=== PATIENT | male | born 1990 ===

== ENCOUNTER 2021-09-09 12:30 | Emergency (ER) | payer BC, SELFPAY ==
[2021-09-09 12:38] VITALS: BP 137/87; PULSE 93; RESP 18; O2SAT 95; BMI 26.0
--- NOTE | 2021-09-09 12:52 | ED.ALCOHOL ---
HPI - Alcohol General Time Seen by Provider: 12:52 Date Seen: 09/09/21 Chief Complaint: Unspecified Complaint, Adult Stated Complaint: Sleep deprivation Time Seen by Provider: 09/09/21 12:50 Source: patient and RN notes reviewed Related Data Home Medications Medication Instructions Recorded Confirmed No Known Home Medications 09/09/21 09/09/21 Allergies Allergy/AdvReac Type Severity Reaction Status Date / Time No Known Drug Allergies Allergy Verified 09/09/21 12:37 PFSH PFSH Social History Smoking Status: Never smoker How often do you have a drink containing alcohol: 2-4 times a month How often do you have six or more drinks on one occasion: Never AUDIT-C Alcohol total score: 2 Non-prescribed substance use: denies use Exam Const: Vital Signs, click to edit/add: Vital Signs - 24 hr 09/09/21 12:38 Pulse Rate [Right Pulse Oximeter] 93 Respiratory Rate 18 Blood Pressure [Ri ght Upper Arm] 137/87 Pulse Oximetry 95 Course Vital Signs Vital signs: Initial Vital Signs Temperature Source Temporal Artery Scan 09/09/21 12:38 Pulse Rate 93 09/09/21 12:38 Respiratory Rate 18 09/09/21 12:38 Blood Pressure 137/87 09/09/21 12:38 Blood Pressure Mean 103 09/09/21 12:38 Blood Pressure Position Sitting 09/09/21 12:38 Pulse Oximetry 95 09/09/21 12:38 Oxygen Delivery Method 09/09/21 12:38 Vital Signs Pulse Rate 93 09/09/21 12:38 Respiratory Rate 18 09/09/21 12:38 Blood Pressure 137/87 09/09/21 12:38 Pulse Oximetry 95 09/09/21 12:38 Pulse Rate 93 09/09/21 12:38 Respiratory Rate 18 09/09/21 12:38 Blood Pressure 137/87 09/09/21 12:38 Pulse Oximetry 95 09/09/21 12:38 Discharge Plan Discharge Prescriptions: No Action No Known Home Medications 0RF
--- NOTE | 2021-09-09 13:06 | ED_ITS ---
HPI - Anxiety General Time Seen by Provider: 12:52 Date Seen: 09/09/21 Chief Complaint: Unspecified Complaint, Adult Stated Complaint: Sleep deprivation Time Seen by Provider: 09/09/21 12:50 Source: patient and family ( is present) Mode of arrival: ambulatory Limitations: no limitations History of Present Illness HPI narrative: Patient is a very pleasant 30-year-old male coming in stating he just has not been able to sleep for about 48 hours. His is present. She states he has been working nights [employer] and then going to school. He recently just c ompleted school. He is exhausted and just has not been able to sleep. He does admit to his mind racing, states he tries to give himself reafformation to help but is just having difficulty sleeping. He endorses that he has been off his medications for about 2 years. He was on escitalopram and something else. There is family history of mood disorders, I cannot completely decipher if bipolar disorder or anxiety and depression are the mainstay in the family but nonetheless are mood disorders. He denies hallucinations or suicidality. He has an appointment tomorrow to get scheduled here in [place] to discuss this. He just felt like he could not wait. He has a history of alcohol abuse and did complete treatment in 2016. He only minimally drinks. His endorses that he really has not had any alcohol since June. Patient does not feel alcohol use is a problem for him right now and is not concerned about this, supports this viewpoint. He feels anxiety is more the problem rather than depression currently. As I was in there talking to him his therapist/counselor called. I did have him talk to the therapist. Patient has taken a total of 20 mg of melatonin for the last 48 hours, 2 tablets of a ZzzQuil type medicine which does have Benadryl. complaint: anxiety and other (insomnia) Onset (ago): day(s) Severity: severe Related Data Previous Rx's Medication Instructions Recorded lorazepam 1 mg tablet (Ativan) 1 mg PO ONCE PRN #1 tab 09/09/21 olanzapine 5 mg tablet (Zyprexa) 5 mg PO ONCE #2 tab 09/09/21 Allergies Allergy/AdvReac Type Severity Reaction Status Date / Time No Known Drug Allergies Allergy Verified 09/09/21 12:37 Review of Systems Status of ROS: Reports: 6 or more systems reviewed and unremarkable except as noted in History and below PFSH PFSH Social History Smoking Status: Never smoker How often do you have a drink containing alcohol: 2-4 times a month How often do you have six or more drinks on one occasion: Never AUDIT-C Alcohol total score: 2 Non-prescribed substance use: denies use Exam 2 Const: Vital Signs, click to edit/add: Vital Signs - 24 hr 09/09/21 12:38 Pulse Rate [Right Pulse Oximeter] 93 Respiratory Rate 18 Blood Pressure [Ri ght Upper Arm] 137/87 Pulse Oximetry 95 Documenting provider has reviewed patient's vital signs: yes Common normals: no apparent distress, average body habitus, oriented x3, healthy appearing and alert (But definitely seems tired) General appearance: cooperative, comfortable and well kempt HENMT: Common normals: normocephalic, head/scalp atraumatic and hearing grossly normal bilaterally Head and scalp: normocephalic and atraumatic Eye: Common normals: PERRL and EOMs intact bilaterally Pupil: PERRL Other: Some mild scleral injection bilaterally Neck & C-Spine: Common normals: no lymphadenopathy and thyroid normal Thyroid: thyroid normal Resp: Common normals: normal respiratory effort, no use of accessory muscles and clear to auscultation bilaterally Auscultation: clear to auscultation bilaterally Cardio: Common normals: regular rate, regular rhythm, S1 normal heart sound, S2 normal heart sound, no gallops, no clicks and no murmurs Rate: regular rate Rhythm: regular rhythm Heart sounds: S1 normal and S2 normal GI: Common normals: Normal to inspection, nondistended, normoactive bowel sounds present Neuro: Common normals: oriented x3 Sensorium/orientation: alert (But definitely seems tired) Psych: Common normals: mental status grossly normal, cooperative, denies hallucinations, denies homicidal ideation and denies suicidal ideation Appearance: well kempt Attitude: calm and engaged Activity/motor behavior: appropriate eye contact and psychomotor slowing (Is certainly very tired, seems appropriate for lack of sleep) Skin: Common normals: no rashes or lesions noted General skin exam: no rashes or lesions noted Course Course Hospital Course: Patient is going to try to look up records to see what he may have been on. We are going to attempt to call [facility] as he may have had prescriptions filled there before. I a.m. would like to see what he has been on in the past. My thought is to consider trazodone to help him try to sleep tonight until he follows up in clinic tomorrow. He did call in sick for work today. I reviewed with him that I thought he should probably at least have the next couple days off to try to reset. He does not seem to have any concerns on my part for suicidality or hallucinations. I certainly a.m. interested to see what medicines that he has been on before. Escitalopram is certainly something I would consider prescribed being but with him not sleeping I do wonder if this could be more bipolar presentation. We did review the need for safety with medications if this could be a bipolar type disorder. He and his do understand that. Reevaluation(s) Reevaluation #1: Patient is been unsuccessful getting through to any facility regarding prior medications. [facility] is going to take over an hour to get us any history on medicines. We have discussed a plan of trying to get him to sleep. We will try Zyprexa and Ativan. We discussed the Ativan and it is a 1 time dose. Time: 13:55 Vital Signs Vital signs: Initial Vital Signs Temperature Source Temporal Artery Scan 09/09/21 12:38 Pulse Rate 93 09/09/21 12:38 Respiratory Rate 18 09/09/21 12:38 Blood Pressure 137/87 09/09/21 12:38 Blood Pressure Mean 103 09/09/21 12:38 Blood Pressure Position Sitting 09/09/21 12:38 Pulse Oximetry 95 09/09/21 12:38 Oxygen Delivery Method 09/09/21 12:38 Vital Signs Pulse Rate 93 09/09/21 12:38 Respiratory Rate 18 09/09/21 12:38 Blood Pressure 137/87 09/09/21 12:38 Pulse Oximetry 95 09/09/21 12:38 Pulse Rate 93 09/09/21 12:38 Respiratory Rate 18 09/09/21 12:38 Blood Pressure 137/87 09/09/21 12:38 Pulse Oximetry 95 09/09/21 12:38 MDM - Anxiety MDM Narrative Medical decision making narrative: See hospital course Critical Care Time Critical Care Time Critical Care Time: No Discharge Plan Discharge Clinical Impression: Insomnia, Anxiety Patient Disposition: Home, Self-Care Condition: Stable Instructions: Insomnia (ED), Anxiety (ED) Additional Instructions: Need to keep clinic appointment as scheduled tomorrow. Note provided to be off work the next 2 days. Can try Zyprexa 5 mg when you get home. If you have not slept in 1-2 hours, can take a 2nd dose of the Zyprexa. If both of these doses of the Zyprexa do not work, take the 1 mg of Ativan. You do need to see if he can find out what medication do have been on prior. At any point you feel like you are experiencing hallucinations, have deterioratio of removed with any suicidal ideation, please return for re-evaluation. Activity Level: No Restrictions Discharge Diet: Regular Prescriptions: New olanzapine [Zyprexa] 5 mg tablet 5 mg PO ONCE Qty: 2 0RF Rx Instructions: May repeat dose in 1-2 hours if not sleeping. lorazepam [Ativan] 1 mg tablet 1 mg PO ONCE PRNQty: 1 0RF Follow Up/Referrals: Provider,Not a Local [Primary Care Provider] - Stand Alone Forms: [facility] ([facility]: [place]) Info Instructions
== END 2021-09-09 14:13 | disposition home or self-care (01) ==
PROVIDERS: Emergency Provider Family Medicine
DX: G47.00 Insomnia, unspecified (principal); F41.9 Anxiety disorder, unspecified
CPT/HCPCS: 99283; 99284

== ENCOUNTER 2021-10-24 17:41 | Emergency (ER) | payer BC, SELFPAY ==
[2021-10-24 18:02] VITALS: BP 161/82; PULSE 95; RESP 20; TEMP 36.1; O2SAT 98; BMI 24.8
--- NOTE | 2021-10-24 18:52 | ED_ITS ---
HPI - Anxiety General Time Seen by Provider: 18:52 <Malathi Gleason MD - Last Filed: 10/25/21 00:12> Date Seen: 10/24/21 <Malathi Gleason MD - Last Filed: 10/25/21 00:12> Chief Complaint: Anxiety <Malathi Gleason MD - Last Filed: 10/25/21 00:12> Stated Complaint: Anxiety <Malathi Gleason MD - Last Filed: 10/25/21 00:12> Time Seen by Provider: 10/24/21 18:51 <Malathi Gleason MD - Last Filed: 10/25/21 00:12> Source: patient, RN notes reviewed and old records reviewed <Malathi Gleason MD - Last Filed: 10/25/21 00:12> Mode of arrival: ambulatory <Malathi Gleason MD - Last Filed: 10/25/21 00:12> Limitations: no limitations <Malathi Gleason MD - Last Filed: 10/25/21 00:12> History of Present Illness HPI narrative: Patient is a 31-year-old male who I am told was hospitalized for 4 weeks at [facility] for psychosis and possible schizoaffective disorder. I do not have those records but per patient's he had a psychosis and presented to [facility] where he was hospitalized for 4 weeks. They started him on Zyprexa and he was discharged last October 16. Since he has been home he has been having and very hard time sleeping and recently outpatient physician prescribed him trazodone. It has not helped. He is unable to stay home alone because anxiety causes him significant distress. His is requesting that he be hospitalized again until he can start his outpatient treatment. She states that patient's stepmother is a drug abuse social worker and has contacted regions where she was told there was a bed available for him. Jadon in addition to not being able to sleep describes chest discomfort stating that it is on his right side but he grabs to his left anterior chest. States that he is also short of breath and has been experiencing a cough with mucus production. He has not had a fever. States over the past few days he has also had some loose stools. At this time he denies a racing heart but states he feels like his blood pressure is high. He has not had any nausea or vomiting. Patient denies any suicidal or homicidal ideation. Denies any auditory or visual hallucinations. His states he still has some delusional behavior but that when they talk he is able to see how it is not a delusion. They are agreeable to DEC evaluation. Patient is preferring that his answer most questions. However, he is able to answer questions appropriately but they are abbreviated. We were able to obtain obtain records from [facility]. On patient's problem list he does have anxiety, bipolar disorder with manic episode with severe psychotic features, schizoaffective disorder all listed in his problem list. Patient on leave from [employer]. Lives in [place] with his who is very loving and supportive. No drug alcohol or tobacco use. <Malathi Gleason MD - Last Filed: 10/25/21 00:12> Related Data Home Medications: Home Medications Medication Instructions Recorded Confirmed escitalopram oxalate 5 mg tablet 5 mg PO DAILY 10/24/21 10/24/21 trazodone 50 mg tablet 100 mg PO HS PRN 10/24/21 10/24/21 Previous Rx's Medication Instructions Recorded lorazepam 1 mg tablet (Ativan) 1 mg PO ONCE PRN #1 tab 09/09/21 olanzapine 5 mg tablet (Zyprexa) 5 mg PO ONCE #2 tabs 09/09/21 <Malathi Gleason MD - Last Filed: 10/25/21 00:12> Allergies/Adverse Reactions: Allergies Allergy/AdvReac Type Severity Reaction Status Date / Time No Known Drug Allergies Allergy Verified 10/24/21 18:06 <Malathi Gleason MD - Last Filed: 10/25/21 00:12> Review of Systems Status of ROS: Reports: 10 or more systems reviewed and unremarkable except as noted in History and below <Malathi Gleason MD - Last Filed: 10/25/21 00 :12> Const: Denies: fever, chills or fatigue <Malathi Gleason MD - Last Filed: 10/25/21 00:12> Eyes: Denies: change in vision <Malathi Gleason MD - Last Filed: 10/25/21 00:12> ENMT: Denies: throat pain or difficulty swallowing <Malathi Gleason MD - Last Filed: 10/25/21 00:12> Cardio: Reports: chest pain and shortness of breath with exertion; Denies: palpitations or edema <Malathi Gleason MD - Last Filed: 10/25/21 00:12> Resp: Reports: shortness of breath and cough (With mild mucus production) <Malathi Gleason MD - Last Filed: 10/25/21 00:12> GI: Denies: abdominal pain, nausea, vomiting or difficulty swallowing <Malathi Gleason MD - Last Filed: 10/25/21 00:12> : Denies: painful urination <Malathi Gleason MD - Last Filed: 10/25/21 00:12> Musculo: Reports: other (States his lower extremities feel heavy.); Denies: back pain <Malathi Gleason MD - Last Filed: 10/25/21 00:12> Neuro: Denies: headache <Malathi Gleason MD - Last Filed: 10/25/21 00:12> Psych: Reports: anxiety; Denies: suicidal ideation or homicidal ideation <Malathi Gleason MD - Last Filed: 10/25/21 00:12> Endo: Denies: fatigue <Malathi Gleason MD - Last Filed: 10/25/21 00:12> PFSH PFS Social History: Social History Smoking Status: Never smoker Do you use any of these nicotine containing products: None Second hand tobacco smoke exposure: No How often do you have a drink containing alcohol: never How often do you have six or more drinks on one occasion: Never AUDIT-C Alcohol total score: 0 Non-prescribed substance use: denies use Non-prescribed substance use details: reports alcohol cessation after [place] hospitalization <Malathi Gleason MD - Last Filed: 10/25/21 00:12> Exam Const: Vital Signs, click to edit/add: Vital Signs - 24 hr 10/25/21 06:27 10/25/21 02:30 Pulse Rate [Pulse Oximeter] 93 84 Respiratory Rate 14 14 Blood Pressure [Ri ght Upper Arm] 138/74 Pulse Oximetry 96 96 Oxygen Delivery Me thod Room Air Room Air <Malathi Gleason MD - Last Filed: 10/25/21 00:12> Vital Signs, click to edit/add: Vital Signs - 24 hr 10/25/21 06:27 10/25/21 02:30 Pulse Rate [Pulse Oximeter] 93 84 Respiratory Rate 14 14 Blood Pressure [[facility] Upper Arm] 138/74 Pulse Oximetry 96 96 Oxygen Delivery Me thod Room Air Room Air <Bassam Shaw MD - Last Filed: 10/28/21 16:52> Documenting provider has reviewed patient's vital signs: yes <Malathi Gleason MD - Last Filed: 10/25/21 00:12> Common normals: no apparent distress, oriented x3 and no limitations <Malathi Gleason MD - Last Filed: 10/25/21 00:12> Exam limitations: altered mental status <Malathi Gleason MD - Last Filed: 10/25/21 00:12> General appearance: cooperative, comfortable and well kempt <Malathi Gleason MD - Last Filed: 10/25/21 00:12> Other: Inability to complete complex sentences. <Maalthi Gleason MD - Last Filed: 10/25/21 00:12> HENMT: Common normals: normocephalic and external nose normal <Malathi Gleason MD - Last Filed: 10/25/21 00:12> Head and scalp: normocephalic <Malathi Gleason MD - Last Filed: 10/25/21 00:12> Face and sinus: normal facial exam, sinuses nontender and face symmetric <Malathi Gleason MD - Last Filed: 10/25/21 00:12> Nose: external nose normal <Malathi Gleason MD - Last Filed: 10/25/21 00:12> Mouth: oral and palatal mucosa normal <Malathi Gleason MD - Last Filed: 10/25/21 00:12> Throat: posterior oropharynx normal <Malatih Gleason MD - Last Filed: 10/25/21 00:12> Eye: Common normals: PERRL <Malathi Gleason MD - Last Filed: 10/25/21 00:12> General eye: normal appearance of both eyes <Malathi Gleason MD - Last Filed: 10/25/21 00:12> Pupil: PERRL <Malathi Gleason MD - Last Filed: 10/25/21 00:12> Neck & C-Spine: Common normals: full ROM, no lymphadenopathy and supple <MD Gaurav Maurice Last Filed: 10/25/21 00:12> Chest: Common normals: inspection of chest normal and palpation of chest normal <Malathi Gleason MD - Last Filed: 10/25/21 00:12> Resp: Common normals: normal respiratory effort, no use of accessory muscles and clear to auscultation bilaterally <MD Gaurav Maurice Last Filed: 10/25/21 00:12> Effort & inspection: able to speak in complete sentences <MD Gaurav Maurice Last Filed: 10/25/21 00:12> Auscultation: clear to auscultation bilaterally <MD Gaurav Maurice Last Filed: 10/25/21 00:12> Cardio: Common normals: regular rate and regular rhythm <Malathi Gleason MD - Last Filed: 10/25/21 00:12> Rate: regular rate <Malathi Gleason MD - Last Filed: 10/25/21 00:12> Rhythm: regular rhythm <Malathi Gleason MD - Last Filed: 10/25/21 00:12> Other: Perhaps slightly hyperdynamic <Malathi Gleason MD - Last Filed: 10/25/21 00:12> GI: Common normals: soft to palpation and non-tender <MD Gaurav Maurice Last Filed: 10/25/21 00:12> Palpation: soft <MD Gaurav Maurice Last Filed: 10/25/21 00:12> : Common normals: no CVA tenderness <MD Gaurav Maurice Last Filed: 10/25/21 00:12> Bladder/kidney exam: no CVA tenderness <MD Gaurav Maurice Last Filed: 10/25/21 00:12> Back & Pelvis: Common normals: no CVA tenderness <MD Gaurav Maurice Last Filed: 10/25/21 00:12> Extremity: Common normals: normal to inspection and full ROM <Malathi Gleason MD - Last Filed: 10/25/21 00:12> Neuro: Common normals: oriented x3 <Malathi Gleason MD - Last Filed: 10/25/21 00:12> Psych: Common normals: cooperative <Malathi Gleason MD - Last Filed: 10/25/21 00:12> Appearance: well kempt <Malathi Gleason MD - Last Filed: 10/25/21 00:12> Attitude: calm <Malathi Gleason MD - Last Filed: 10/25/21 00:12> Activity/motor behavior: appropriate eye contact and psychomotor slowing <Malathi Gleason MD - Last Filed: 10/25/21 00:12> Speech: minimal and slow <Malathi Gleason MD - Last Filed: 10/25/21 00:12> Mood and affect: flat affect <Malathi Gleason MD - Last Filed: 10/25/21 00:12> Thought content: normal thought content <Malathi Gleason MD - Last Filed: 10/25/21 00:12> Attention/concentration: attention grossly intact <Malathi Gleason MD - Last Filed: 10/25/21 00:12> Memory/cognition: memory grossly intact <Malathi Gleason MD - Last Filed: 10/25/21 00:12> Insight: fair <Malathi Gleason MD - Last Filed: 10/25/21 00:12> Judgement: fair <Malathi Gleason MD - Last Filed: 10/25/21 00:12> Skin: Common normals: no rashes or lesions noted <Malathi Gleason MD - Last Filed: 10/25/21 00:12> General skin exam: no rashes or lesions noted <Malathi Gleason MD - Last Filed: 10/25/21 00:12> Course Course Hospital Course: Patient is presenting with significant anxiety that has been ongoing since his discharge from [facility] on October 16. Tonight however he also has some chest pain, cough shortness of breath. We will check him for COVID and do an EKG troponin as well as chest x-ray. Will also check electrolytes including magnesium and creatinine kinase patient will receive deck exam have IV placed and be check for COVID. They are in agreement with this plan. <Malathi Gleason MD - Last Filed: 10/25/21 00:12> Reevaluation(s) Reevaluation #1: Patient is voluntary placement at this time. DEC he is reaching out to various facilities to find [place] inpatient treatment. Patient did receive Zyprexa 20 mg p.o. per family. They state this is his normal dose. Magnesium level is normal. <Malathi Gleason MD - Last Filed: 10/25/21 00:12> Reevaluation #2: Received Mr. Herman at change of shift handoff. When I enter the department is standing in the door of his room briefly. I understand from handoff that anxiety is a major symptom. Later with sleeping difficult, ordered for 1 mg of IV lorazepam. <Bassam Shaw MD - Last Filed: 10/28/21 16:52> Time: 01:28 <Bassam Shaw MD - Last Filed: 10/28/21 16:52> Reevaluation #3: Was ordered for further lorazepam and IV Zyprexa low-dose. Accepted by [facility]. <Bassam Shaw MD - Last Filed: 10/28/21 16:52> Consultations Consultation #1: I did speak with share in at [facility] whom the stepmother had spoken with. Miroslava notes that they will need to have us go through [facility] direct admission should we need a bed. The number is [phone] . <Malathi Gleason MD - Last Filed: 10/25/21 00:12> Consultation #2: DEC consultation. They are attempting to find placement as occur E is voluntary. He is medically cleared at this time with a reassuring EKG, negative troponin as well as electrolytes. His COVID is also negative. <Malathi Gleason MD - Last Filed: 10/25/21 00:12> Vital Signs Vital signs: Initial Vital Signs Temperature 96.9 F L 10/24/21 18:02 Temperature Source Temporal Artery Scan 10/24/21 18:02 Pulse Rate 95 10/24/21 18:02 Respiratory Rate 20 10/24/21 18:02 Blood Pressure 161/82 H 10/24/21 18:02 Blood Pressure Mean 108 10/24/21 18:02 Blood Pressure Position Sitting 10/24/21 18:02 Pulse Oximetry 98 10/24/21 18:02 Oxygen Delivery Method 10/24/21 18:02 Vital Signs Temperature 96.9 F L 10/24/21 18:02 Pulse Rate 95 10/24/21 18:02 Respiratory Rate 20 10/24/21 18:02 Blood Pressure 161/82 H 10/24/21 18:02 Pulse Oximetry 98 10/24/21 18:02 Oxygen Delivery Method 10/24/21 18:02 Temperature 96.9 F L 10/24/21 18:02 Pulse Rate 93 10/25/21 06:27 Respiratory Rate 14 10/25/21 06:27 Blood Pressure 138/74 10/25/21 02:30 Pulse Oximetry 96 10/25/21 06:27 Oxygen Delivery Method 10/25/21 06:27 <Malathi Gleason MD - Last Filed: 10/25/21 00:12> Initial Vital Signs Temperature 96.9 F L 10/24/21 18:02 Temperature Source Temporal Artery Scan 10/24/21 18:02 Pulse Rate 95 10/24/21 18:02 Respiratory Rate 20 10/24/21 18:02 Blood Pressure 161/82 H 10/24/21 18:02 Blood Pressure Mean 108 10/24/21 18:02 Blood Pressure Position Sitting 10/24/21 18:02 Pulse Oximetry 98 10/24/21 18:02 Oxygen Delivery Method 10/24/21 18:02 Vital Signs Temperature 96.9 F L 10/24/21 18:02 Pulse Rate 95 10/24/21 18:02 Respiratory Rate 20 10/24/21 18:02 Blood Pressure 161/82 H 10/24/21 18:02 Pulse Oximetry 98 10/24/21 18:02 Oxygen Delivery Method 10/24/21 18:02 Temperature 96.9 F L 10/24/21 18:02 Pulse Rate 93 10/25/21 06:27 Respiratory Rate 14 10/25/21 06:27 Blood Pressure 138/74 10/25/21 02:30 Pulse Oximetry 96 10/25/21 06:27 Oxygen Delivery Method 10/25/21 06:27 <Bassam Shaw MD - Last Filed: 10/28/21 16:52> MDM - Anxiety MDM Narrative Medical decision making narrative: 1. Anxiety-patient notes overwhelming anxiety in spite of Zyprexa and trazodone use. He was just discharged from [facility] on October 16 and feels that he is still not well or stable. He is very worried about being alone at home. states he still has continued be delusional type police but usually she can talk him out of that. They are both wishing for Jadon to be placed for psychiatric care. Patient received his dose of Zyprexa 20 mg p.o. while here with us. I also gave him a dose of Ativan 0.5 mg IV. 2. Chest pain-at this time EKG, troponin reassuring. COVID is negative and chest x-ray is normal. Believe this is likely related to 1. 3. Disposition-patient is medically cleared at this time for placement. Currently awaiting accepting facility. Patient is voluntary. <Malathi Gleason MD - Last Filed: 10/25/21 00:12> Medical Records Attestation: I reviewed the patient's medical records. <Malathi Gleason MD - Last Filed: 10/25/21 00:12> Lab Data Attestation: I reviewed the patient's lab results. <Malathi Gleason MD - Last Filed: 10/25/21 00:12> Labs: Lab Results 10/24/21 10/24/21 10/24/21 Range/Units 19:35 19:45 19:45 WBC 7.78 (4.50-11.00) K/uL RBC 4.77 (4.30-5.90) m/uL Hgb 14.4 (13.5-17.5) gm/dL Hct 40.8 (37.0-53.0) % MCV 86 (80-100) fL MCH 30 (26-34) pg MCHC 35 (32-36) gm/dL RDW Coeff of Zackary 11.6 (11.5-15.5) % Plt Count 206 (140-440) K/uL Neut % (Auto) 58.6 (42.0-72.0) % Lymph % (Auto) 33.0 (20-44) % [place] % (Auto) 7.2 (0.0-11.0) % Eos % (Auto) 0.6 (0.0-7.0) % Baso % (Auto) 0.5 (0.0-3.0) % Neut # (Auto) 4.55 (1.7-7.0) K/uL Lymph # (Auto) 2.57 (0.90-2.90) K/uL [place] # (Auto) 0.60 (0.00-0.90) K/UL Eos # (Auto) 0.05 (0.00-0.50) K/uL Baso # (Auto) 0.04 (0.00-0.30) K/uL Abs Immat Gran (auto) 0.01 (0.00-0.30) K/uL Sodium 139 (135-149) mmol/L Potassium 3.3 L (3.6-5.1) mmol/L Chloride 107 (96-114) mmol/L Carbon Dioxide 24 (20-32) mmol/L BUN 19 (5-24) mg/dL Creatinine 0.9 (0.5-1.5) mg/dL Estimated Creat Clear 156.56 Estimated GFR 119 ml/min Glucose 98 (60-115) mg/dL Calcium 9.1 (8.4-10.6) mg/dL Magnesium 2.1 (1.5-2.6) mg/dL Total Bilirubin 0.3 (0.1-1.5) mg/dL AST 33 (12-35) U/L ALT 21 (4-50) U/L Alkaline Phosphatase 93 (40-150) U/L Total Creatine Kinase 28 L (54-186) U/L Troponin I < 0.01 L (0.01-0.04) ng/mL C-Reactive Protein < 0.5 L (0.5-1.0) mg/dL Total Protein 7.0 (6.0-8.3) g/dL Albumin 4.3 (3.3-5.0) g/dL Urine Color (Yellow) Urine Appearance (Clear) Urine pH (5.0-8.5) Ur Specific [place] (1.000-1.030) Urine Protein (Negative) Urine Glucose (UA) (Negative) Urine Ketones (Negative) Urine Blood (Negative) Urine Nitrite (Negative) Urine Bilirubin (Negative) Urine Urobilinogen (0.2-1.0) Ur Leukocyte Esterase (Negative) Urine RBC (0-2) Urine WBC (0-5) Ur Squamous Epith Cells (None-Few) Amorphous Sediment (None) Urine Bacteria (None) Salicylates (1.0-10) mg/dL Urine Opiates Screen (Negative) Ur Oxycodone Screen (Negative) Urine Methadone Screen (Negative) Ur Propoxyphene Screen (Negative) Acetaminophen (10.0-30.0) ug/mL Ur Barbiturates Screen (Negative) U Tricyclic Antidepress (Negative) Ur Phencyclidine Scrn (Negative) Ur Amphetamines Screen (Negative) U Methamphetamines Scrn (Negative) U Benzodiazepines Scrn (Negative) Urine Cocaine Screen (Negative) U Marijuana (THC) Screen (Negative) Ur Drug Screen Comment Ethyl Alcohol (0.01-0.03) % SARS-CoV-2 (PCR) Negative SARS-CoV-2 (Negative) 10/24/21 10/24/21 10/25/21 Range/Units 19:45 19:45 00:05 WBC (4.50-11.00) K/uL RBC (4.30-5.90) m/uL Hgb (13.5-17.5) gm/dL Hct (37.0-53.0) % MCV (80-100) fL MCH (26-34) pg MCHC (32-36) gm/dL RDW Coeff of Zackary (11.5-15.5) % Plt Count (140-440) K/uL Neut % (Auto) (42.0-72.0) % Lymph % (Auto) (20-44) % [place] % (Auto) (0.0-11.0) % Eos % (Auto) (0.0-7.0) % Baso % (Auto) (0.0-3.0) % Neut # (Auto) (1.7-7.0) K/uL Lymph # (Auto) (0.90-2.90) K/uL [place] # (Auto) (0.00-0.90) K/UL Eos # (Auto) (0.00-0.50) K/uL Baso # (Auto) (0.00-0.30) K/uL Abs Immat Gran (auto) (0.00-0.30) K/uL Sodium (135-149) mmol/L Potassium (3.6-5.1) mmol/L Chloride (96-114) mmol/L Carbon Dioxide (20-32) mmol/L BUN (5-24) mg/dL Creatinine (0.5-1.5) mg/dL Estimated Creat Clear Estimated GFR ml/min Glucose (60-115) mg/dL Calcium (8.4-10.6) mg/dL Magnesium (1.5-2.6) mg/dL Total Bilirubin (0.1-1.5) mg/dL AST (12-35) U/L ALT (4-50) U/L Alkaline Phosphatase (40-150) U/L Total Creatine Kinase (54-186) U/L Troponin I (0.01-0.04) ng/mL C-Reactive Protein (0.5-1.0) mg/dL Total Protein (6.0-8.3) g/dL Albumin (3.3-5.0) g/dL Urine Color Yellow (Yellow) Urine Appearance Slightly Cloudy A (Clear) Urine pH 7.0 (5.0-8.5) Ur Specific [place] 1.025 (1.000-1.030) Urine Protein Negative (Negative) Urine Glucose (UA) Negative (Negative) Urine Ketones Negative (Negative) Urine Blood Negative (Negative) Urine Nitrite Negative (Negative) Urine Bilirubin Negative (Negative) Urine Urobilinogen 0.2 (0.2-1.0) Ur Leukocyte Esterase Negative (Negative) Urine RBC 0-2 (0-2) Urine WBC 0-2 (0-5) Ur Squamous Epith Cells Few (None-Few) Amorphous Sediment Moderate A (None) Urine Bacteria None (None) Salicylates < 1.0 L (1.0-10) mg/dL Urine Opiates Screen (Negative) Ur Oxycodone Screen (Negative) Urine Methadone Screen (Negative) Ur Propoxyphene Screen (Negative) Acetaminophen < 10.0 L (10.0-30.0) ug/mL Ur Barbiturates Screen (Negative) U Tricyclic Antidepress (Negative) Ur Phencyclidine Scrn (Negative) Ur Amphetamines Screen (Negative) U Methamphetamines Scrn (Negative) U Benzodiazepines Scrn (Negative) Urine Cocaine Screen (Negative) U Marijuana (THC) Screen (Negative) Ur Drug Screen Comment Ethyl Alcohol < 0.01 L (0.01-0.03) % SARS-CoV-2 (PCR) (Negative) 10/25/21 Range/Units 00:05 WBC (4.50-11.00) K/uL RBC (4.30-5.90) m/uL Hgb (13.5-17.5) gm/dL Hct (37.0-53.0) % MCV (80-100) fL MCH (26-34) pg MCHC (32-36) gm/dL RDW Coeff of Zackary (11.5-15.5) % Plt Count (140-440) K/uL Neut % (Auto) (42.0-72.0) % Lymph % (Auto) (20-44) % [place] % (Auto) (0.0-11.0) % Eos % (Auto) (0.0-7.0) % Baso % (Auto) (0.0-3.0) % Neut # (Auto) (1.7-7.0) K/uL Lymph # (Auto) (0.90-2.90) K/uL [place] # (Auto) (0.00-0.90) K/UL Eos # (Auto) (0.00-0.50) K/uL Baso # (Auto) (0.00-0.30) K/uL Abs Immat Gran (auto) (0.00-0.30) K/uL Sodium (135-149) mmol/L Potassium (3.6-5.1) mmol/L Chloride (96-114) mmol/L Carbon Dioxide (20-32) mmol/L BUN (5-24) mg/dL Creatinine (0.5-1.5) mg/dL Estimated Creat Clear Estimated GFR ml/min Glucose (60-115) mg/dL Calcium (8.4-10.6) mg/dL Magnesium (1.5-2.6) mg/dL Total Bilirubin (0.1-1.5) mg/dL AST (12-35) U/L ALT (4-50) U/L Alkaline Phosphatase (40-150) U/L Total Creatine Kinase (54-186) U/L Troponin I (0.01-0.04) ng/mL C-Reactive Protein (0.5-1.0) mg/dL Total Protein (6.0-8.3) g/dL Albumin (3.3-5.0) g/dL Urine Color (Yellow) Urine Appearance (Clear) Urine pH (5.0-8.5) Ur Specific [place] (1.000-1.030) Urine Protein (Negative) Urine Glucose (UA) (Negative) Urine Ketones (Negative) Urine Blood (Negative) Urine Nitrite (Negative) Urine Bilirubin (Negative) Urine Urobilinogen (0.2-1.0) Ur Leukocyte Esterase (Negative) Urine RBC (0-2) Urine WBC (0-5) Ur Squamous Epith Cells (None-Few) Amorphous Sediment (None) Urine Bacteria (None) Salicylates (1.0-10) mg/dL Urine Opiates Screen Negative (Negative) Ur Oxycodone Screen Negative (Negative) Urine Methadone Screen Negative (Negative) Ur Propoxyphene Screen Negative (Negative) Acetaminophen (10.0-30.0) ug/mL Ur Barbiturates Screen Negative (Negative) U Tricyclic Antidepress Negative (Negative) Ur Phencyclidine Scrn Negative (Negative) Ur Amphetamines Screen Negative (Negative) U Methamphetamines Scrn Negative (Negative) U Benzodiazepines Scrn POSITIVE A* (Negative) Urine Cocaine Screen Negative (Negative) U Marijuana (THC) Screen Negative (Negative) Ur Drug Screen Comment See Note Ethyl Alcohol (0.01-0.03) % SARS-CoV-2 (PCR) (Negative) <Malathi Gleason MD - Last Filed: 10/25/21 00:12> Lab Results 10/24/21 10/24/21 10/24/21 Range/Units 19:35 19:45 19:45 WBC 7.78 (4.50-11.00) K/uL RBC 4.77 (4.30-5.90) m/uL Hgb 14.4 (13.5-17.5) gm/dL Hct 40.8 (37.0-53.0) % MCV 86 (80-100) fL MCH 30 (26-34) pg MCHC 35 (32-36) gm/dL RDW Coeff of Zackary 11.6 (11.5-15.5) % Plt Count 206 (140-440) K/uL Neut % (Auto) 58.6 (42.0-72.0) % Lymph % (Auto) 33.0 (20-44) % [place] % (Auto) 7.2 (0.0-11.0) % Eos % (Auto) 0.6 (0.0-7.0) % Baso % (Auto) 0.5 (0.0-3.0) % Neut # (Auto) 4.55 (1.7-7.0) K/uL Lymph # (Auto) 2.57 (0.90-2.90) K/uL [place] # (Auto) 0.60 (0.00-0.90) K/UL Eos # (Auto) 0.05 (0.00-0.50) K/uL Baso # (Auto) 0.04 (0.00-0.30) K/uL Abs Immat Gran (auto) 0.01 (0.00-0.30) K/uL Sodium 139 (135-149) mmol/L Potassium 3.3 L (3.6-5.1) mmol/L Chloride 107 (96-114) mmol/L Carbon Dioxide 24 (20-32) mmol/L BUN 19 (5-24) mg/dL Creatinine 0.9 (0.5-1.5) mg/dL Estimated Creat Clear 156.56 Estimated GFR 119 ml/min Glucose 98 (60-115) mg/dL Calcium 9.1 (8.4-10.6) mg/dL Magnesium 2.1 (1.5-2.6) mg/dL Total Bilirubin 0.3 (0.1-1.5) mg/dL AST 33 (12-35) U/L ALT 21 (4-50) U/L Alkaline Phosphatase 93 (40-150) U/L Total Creatine Kinase 28 L (54-186) U/L Troponin I < 0.01 L (0.01-0.04) ng/mL C-Reactive Protein < 0.5 L (0.5-1.0) mg/dL Total Protein 7.0 (6.0-8.3) g/dL Albumin 4.3 (3.3-5.0) g/dL Urine Color (Yellow) Urine Appearance (Clear) Urine pH (5.0-8.5) Ur Specific [place] (1.000-1.030) Urine Protein (Negative) Urine Glucose (UA) (Negative) Urine Ketones (Negative) Urine Blood (Negative) Urine Nitrite (Negative) Urine Bilirubin (Negative) Urine Urobilinogen (0.2-1.0) Ur Leukocyte Esterase (Negative) Urine RBC (0-2) Urine WBC (0-5) Ur Squamous Epith Cells (None-Few) Amorphous Sediment (None) Urine Bacteria (None) Salicylates (1.0-10) mg/dL Urine Opiates Screen (Negative) Ur Oxycodone Screen (Negative) Urine Methadone Screen (Negative) Ur Propoxyphene Screen (Negative) Acetaminophen (10.0-30.0) ug/mL Ur Barbiturates Screen (Negative) U Tricyclic Antidepress (Negative) Ur Phencyclidine Scrn (Negative) Ur Amphetamines Screen (Negative) U Methamphetamines Scrn (Negative) U Benzodiazepines Scrn (Negative) Urine Cocaine Screen (Negative) U Marijuana (THC) Screen (Negative) Ur Drug Screen Comment Ethyl Alcohol (0.01-0.03) % SARS-CoV-2 (PCR) Negative SARS-CoV-2 (Negative) 10/24/21 10/24/21 10/25/21 Range/Units 19:45 19:45 00:05 WBC (4.50-11.00) K/uL RBC (4.30-5.90) m/uL Hgb (13.5-17.5) gm/dL Hct (37.0-53.0) % MCV (80-100) fL MCH (26-34) pg MCHC (32-36) gm/dL RDW Coeff of Zackary (11.5-15.5) % Plt Count (140-440) K/uL Neut % (Auto) (42.0-72.0) % Lymph % (Auto) (20-44) % [place] % (Auto) (0.0-11.0) % Eos % (Auto) (0.0-7.0) % Baso % (Auto) (0.0-3.0) % Neut # (Auto) (1.7-7.0) K/uL Lymph # (Auto) (0.90-2.90) K/uL [place] # (Auto) (0.00-0.90) K/UL Eos # (Auto) (0.00-0.50) K/uL Baso # (Auto) (0.00-0.30) K/uL Abs Immat Gran (auto) (0.00-0.30) K/uL Sodium (135-149) mmol/L Potassium (3.6-5.1) mmol/L Chloride (96-114) mmol/L Carbon Dioxide (20-32) mmol/L BUN (5-24) mg/dL Creatinine (0.5-1.5) mg/dL Estimated Creat Clear Estimated GFR ml/min Glucose (60-115) mg/dL Calcium (8.4-10.6) mg/dL Magnesium (1.5-2.6) mg/dL Total Bilirubin (0.1-1.5) mg/dL AST (12-35) U/L ALT (4-50) U/L Alkaline Phosphatase (40-150) U/L Total Creatine Kinase (54-186) U/L Troponin I (0.01-0.04) ng/mL C-Reactive Protein (0.5-1.0) mg/dL Total Protein (6.0-8.3) g/dL Albumin (3.3-5.0) g/dL Urine Color Yellow (Yellow) Urine Appearance Slightly Cloudy A (Clear) Urine pH 7.0 (5.0-8.5) Ur Specific [place] 1.025 (1.000-1.030) Urine Protein Negative (Negative) Urine Glucose (UA) Negative (Negative) Urine Ketones Negative (Negative) Urine Blood Negative (Negative) Urine Nitrite Negative (Negative) Urine Bilirubin Negative (Negative) Urine Urobilinogen 0.2 (0.2-1.0) Ur Leukocyte Esterase Negative (Negative) Urine RBC 0-2 (0-2) Urine WBC 0-2 (0-5) Ur Squamous Epith Cells Few (None-Few) Amorphous Sediment Moderate A (None) Urine Bacteria None (None) Salicylates < 1.0 L (1.0-10) mg/dL Urine Opiates Screen (Negative) Ur Oxycodone Screen (Negative) Urine Methadone Screen (Negative) Ur Propoxyphene Screen (Negative) Acetaminophen < 10.0 L (10.0-30.0) ug/mL Ur Barbiturates Screen (Negative) U Tricyclic Antidepress (Negative) Ur Phencyclidine Scrn (Negative) Ur Amphetamines Screen (Negative) U Methamphetamines Scrn (Negative) U Benzodiazepines Scrn (Negative) Urine Cocaine Screen (Negative) U Marijuana (THC) Screen (Negative) Ur Drug Screen Comment Ethyl Alcohol < 0.01 L (0.01-0.03) % SARS-CoV-2 (PCR) (Negative) 10/25/21 Range/Units 00:05 WBC (4.50-11.00) K/uL RBC (4.30-5.90) m/uL Hgb (13.5-17.5) gm/dL Hct (37.0-53.0) % MCV (80-100) fL MCH (26-34) pg MCHC (32-36) gm/dL RDW Coeff of Zackary (11.5-15.5) % Plt Count (140-440) K/uL Neut % (Auto) (42.0-72.0) % Lymph % (Auto) (20-44) % [place] % (Auto) (0.0-11.0) % Eos % (Auto) (0.0-7.0) % Baso % (Auto) (0.0-3.0) % Neut # (Auto) (1.7-7.0) K/uL Lymph # (Auto) (0.90-2.90) K/uL [place] # (Auto) (0.00-0.90) K/UL Eos # (Auto) (0.00-0.50) K/uL Baso # (Auto) (0.00-0.30) K/uL Abs Immat Gran (auto) (0.00-0.30) K/uL Sodium (135-149) mmol/L Potassium (3.6-5.1) mmol/L Chloride (96-114) mmol/L Carbon Dioxide (20-32) mmol/L BUN (5-24) mg/dL Creatinine (0.5-1.5) mg/dL Estimated Creat Clear Estimated GFR ml/min Glucose (60-115) mg/dL Calcium (8.4-10.6) mg/dL Magnesium (1.5-2.6) mg/dL Total Bilirubin (0.1-1.5) mg/dL AST (12-35) U/L ALT (4-50) U/L Alkaline Phosphatase (40-150) U/L Total Creatine Kinase (54-186) U/L Troponin I (0.01-0.04) ng/mL C-Reactive Protein (0.5-1.0) mg/dL Total Protein (6.0-8.3) g/dL Albumin (3.3-5.0) g/dL Urine Color (Yellow) Urine Appearance (Clear) Urine pH (5.0-8.5) Ur Specific [place] (1.000-1.030) Urine Protein (Negative) Urine Glucose (UA) (Negative) Urine Ketones (Negative) Urine Blood (Negative) Urine Nitrite (Negative) Urine Bilirubin (Negative) Urine Urobilinogen (0.2-1.0) Ur Leukocyte Esterase (Negative) Urine RBC (0-2) Urine WBC (0-5) Ur Squamous Epith Cells (None-Few) Amorphous Sediment (None) Urine Bacteria (None) Salicylates (1.0-10) mg/dL Urine Opiates Screen Negative (Negative) Ur Oxycodone Screen Negative (Negative) Urine Methadone Screen Negative (Negative) Ur Propoxyphene Screen Negative (Negative) Acetaminophen (10.0-30.0) ug/mL Ur Barbiturates Screen Negative (Negative) U Tricyclic Antidepress Negative (Negative) Ur Phencyclidine Scrn Negative (Negative) Ur Amphetamines Screen Negative (Negative) U Methamphetamines Scrn Negative (Negative) U Benzodiazepines Scrn POSITIVE A* (Negative) Urine Cocaine Screen Negative (Negative) U Marijuana (THC) Screen Negative (Negative) Ur Drug Screen Comment See Note Ethyl Alcohol (0.01-0.03) % SARS-CoV-2 (PCR) (Negative) <Bassam Shaw MD - Last Filed: 10/28/21 16:52> Imaging Data Chest x-ray: Attestation: I have reviewed the pertinent imaging results. <Malathi Gleason MD - Last Filed: 10/25/21 00:12> My impression: No obvious infiltrate <Malathi Gleason MD - Last Filed: 10/25/21 00:12> Radiologist's impression: No acute finding <Malathi Gleason MD - Last Filed: 10/25/21 00:12> ECG Data Attestation: I personally reviewed and interpreted this ECG as follows: <Malathi Gleason MD - Last Filed: 10/25/21 00:12> ECG interpretation date: 10/24/21 <Malathi Gleason MD - Last Filed: 10/25/21 00:12> Prior ECG tracings: not available for review <Malathi Gleason MD - Last Filed: 10/25/21 0 0:12> Interpretation: EKG by my read shows sinus rhythm at a rate of 70. No acute ST or T-wave changes are noted. QT interval normal at 423 milliseconds corrected. <Malathi Gleason MD - Last Filed: 10/25/21 00:12> Discharge Plan Discharge Clinical Impression: Psychosis, Acute anxiety <Malathi Gleason MD - Last Filed: 10/25/21 00:12> Patient Disposition: [facility] <Malathi Gleason MD - Last Filed: 10/25/21 00:12> Discharge Location: [facility] <Malathi Gleason MD - Last Filed: 10/25/21 00:12> Condition: Stable <Malathi Gleason MD - Last Filed: 10/25/21 00:12> Prescriptions: No Action olanzapine [Zyprexa] 5 mg tablet 5 mg PO ONCE Qty: 2 0RF Rx Instructions: May repeat dose in 1-2 hours if not sleeping. lorazepam [Ativan] 1 mg tablet 1 mg PO ONCE PRNQty: 1 0RF Hold Instructions: stopped 10/23/21 by trazodone 50 mg tablet 100 mg PO HS PRN escitalopram oxalate 5 mg tablet 5 mg PO DAILY <Malathi Gleason MD - Last Filed: 10/25/21 00:12> Stand Alone Forms: My[facility] Info Instructions <Malathi Gleason MD - Last Filed: 10/25/21 00:12>
[2021-10-24 19:55] LABS: Basophils Absolute Auto 0.04 K/uL (0.00-0.30); Basophils Percent Auto 0.5 % (0.0-3.0); Eosinophils Absolute Auto 0.05 K/uL (0.00-0.50); Eosinophils Percent Auto 0.6 % (0.0-7.0); Hematocrit 40.8 % (37.0-53.0); Hemoglobin* 14.4 gm/dL (13.5-17.5); Immature Granulocytes Abs Auto 0.01 K/uL (0.00-0.30); Lymphocytes Absolute Auto 2.57 K/uL (0.90-2.90); Mean Corpuscular HGB Conc 35 gm/dL (32-36); Mean Corpuscular Hemoglobin 30 pg (26-34); Mean Corpuscular Volume 86 fL (80-100); Monocytes Percent Auto 7.2 % (0.0-11.0); Neutrophils Absolute Auto 4.55 K/uL (1.7-7.0); Neutrophils Percent Auto 58.6 % (42.0-72.0); Platelet Count* 206 K/uL (140-440); RDW Coefficient of Variation % 11.6 % (11.5-15.5); Red Blood Count 4.77 m/uL (4.30-5.90); White Blood Count* 7.78 K/uL (4.50-11.00)
[2021-10-24 20:01] LABS: Slide Review Reflex No
[2021-10-24 20:12] LABS: Albumin* 4.3 g/dL (3.3-5.0); Chloride* 107 mmol/L (96-114); Sodium* 139 mmol/L (135-149)
[2021-10-24 20:13] LABS: Potassium* 3.3 mmol/L (3.6-5.1)
[2021-10-24 20:15] LABS: Creatinine* 0.9 mg/dL (0.5-1.5); Est. Creatinine Clearance* 156.56; Estimated Glomerular Filt Rate 119 ml/min
[2021-10-24 20:16] LABS: Alanine Aminotransferase* 21 U/L (4-50); Alkaline Phosphatase* 93 U/L (40-150); Aspartate Amino Transferase* 33 U/L (12-35); Bilirubin Total* 0.3 mg/dL (0.1-1.5); Blood Urea Nitrogen* 19 mg/dL (5-24); Calcium* 9.1 mg/dL (8.4-10.6); Carbon Dioxide* 24 mmol/L (20-32); Creatine Kinase* 28 U/L (54-186); Glucose* 98 mg/dL (60-115)
[2021-10-24 20:17] LABS: Magnesium* 2.1 mg/dL (1.5-2.6)
[2021-10-24] MEDS: LORazepam 2 MG/ML inj 0.5 MG IVP (20:18)
--- NOTE | 2021-10-24 20:19 | CRLHL7_ITS ---
For Patients: As a result of the Century Cures Act, medical imaging exams and procedure reports are released immediately into your electronic medical record. You may view this report before your referring provider. If you have questions, please contact your health care provider. INDICATION: Chest pain. TECHNIQUE: Chest 1 view(s) COMPARISON: None. FINDINGS: Cardiomediastinal silhouette and pulmonary vasculature are normal. No focal consolidation. No pleural effusion, no definite pneumothorax. No acute chest wall abnormality. IMPRESSION: No focal consolidation. Dictated by Jose Fitch MD @ 10/24/2021 8:47:34 PM (Electronically Signed)
[2021-10-24 20:24] LABS: C Reactive Protein* < 0.5 mg/dL (0.5-1.0)
[2021-10-24 20:35] LABS: Troponin I* < 0.01 ng/mL (0.01-0.04)
[2021-10-24] MEDS: OLANZapine 5 MG TAB.RAPDIS 20 MG PO (21:02)
[2021-10-24 21:04] LABS: SARS PCR* Negative SARS-CoV-2 (Negative)
[2021-10-25 00:10] LABS: Appearance Urine Slightly Cloudy (Clear); Bilirubin Urine Negative (Negative); Blood Urine Negative (Negative); Glucose Urine Negative (Negative); Ketones Urine Negative (Negative); Leukocyte Esterase Urine Negative (Negative); Nitrite Urine Negative (Negative); Protein Urine Negative (Negative); Specific Gravity Urine 1.025 (1.000-1.030); Urobilinogen Urine 0.2 (0.2-1.0)
[2021-10-25 00:11] LABS: Color Urine Yellow (Yellow)
[2021-10-25 00:38] LABS: RBC Urine 0-2 (0-2); Squamous Epithelial Cell Urine Few (None-Few); WBC Urine 0-2 (0-5)
[2021-10-25 00:39] LABS: Amorphous Sediment Urine Moderate
[2021-10-25] MEDS: LORazepam 2 MG/ML inj 1 MG IVP (01:54)
--- NOTE | 2021-10-25 02:07 | ED.NURSE ---
Lee Chicas said no for admin
[2021-10-25 02:30] VITALS: BP 138/74; PULSE 84; RESP 14; O2SAT 96
[2021-10-25 05:11] LABS: Acetaminophen* < 10.0 ug/mL (10.0-30.0); Salicylate* < 1.0 mg/dL (1.0-10)
[2021-10-25 05:13] LABS: Ethanol* < 0.01 % (0.01-0.03)
[2021-10-25 05:23] LABS: Amphetamine Screen Urine Negative (Negative); Barbiturate Screen Urine Negative (Negative); Cannabinoid Screen Urine Negative (Negative); Cocaine Screen Urine Negative (Negative); Methadone Screen Urine Negative (Negative); Methamphetamines Screen Urine Negative (Negative); Opiate Screen Urine Negative (Negative); Oxycodone Screen Urine Negative (Negative); Phencyclidine Screen Urine Negative (Negative); Tricyclic Antidepressant Urine Negative (Negative)
[2021-10-25 05:26] LABS: Benzodiazepines Screen Urine POSITIVE (Negative)
[2021-10-25 06:27] VITALS: PULSE 93; RESP 14; O2SAT 96
--- NOTE | 2021-10-25 07:00 | ED.NURSE ---
Report from NYDIA Maharaj. I will now assume care of patient. Patient sleeping on cot, VSS. HR 74, RR18, SpO2 98% RA. Has been sleeping ~3hours. Patient accepted by [facility] approximately 0530, just needs transportation. EMS dispatch contacted for transfer.
--- NOTE | 2021-10-25 07:14 | ED.NURSE ---
notified of transfer
--- NOTE | 2021-10-25 07:31 | ED.NURSE ---
Report to [facility], patient en route to [facility]. [facility] aware of transfer.
== END 2021-10-25 07:45 ==
PROVIDERS: Family Medicine; Emergency Provider Family Medicine; PCP Family Medicine
DX: F23 Brief psychotic disorder (principal); F41.9 Anxiety disorder, unspecified; R07.9 Chest pain, unspecified; R05.9 Cough, unspecified; R06.02 Shortness of breath
CPT/HCPCS: 36415; 71045; 80053; 80143; 80179; 80306; 81001; 82077; 82550; 83735; 84484; 85025; 86140; 87631; 87635; 93005; 96374; 96375; 96376; 99285; A9270; J2060

== ENCOUNTER 2021-10-25 07:35 | Outpatient (CLI) | payer BC, SELFPAY | END 2021-10-25 07:36 | disposition home or self-care (01) | LOC: AMB 10-28 03:03 | PROVIDERS: PCP Family Medicine; Visit Provider Family Medicine | DX: F29 Unspecified psychosis not due to a substance or known physiological condition (principal); F41.9 Anxiety disorder, unspecified | CPT/HCPCS: A0425; A0428 ==